=== PATIENT | female | born 1955 ===

== ENCOUNTER 2017-05-05 11:52 | Emergency (ER) | payer MEDICAID ==
[2017-05-05 12:47] VITALS: BP 148/47; PULSE 63; RESP 20; TEMP 97; O2SAT 95
[2017-05-05] MEDS ORDERED: Lidocaine 5% Patch TD STA (13:26)
--- NOTE | 2017-05-05 14:38 | ED PDOC ---
Upper Extremity Pain/Injury Time Seen by Provider: 05/05/17 13:00 Chief Complaint (Nursing): Upper Extremity Problem/Injury Chief Complaint (Provider): Upper Extremity Problem/Injury History Per: Patient Onset/Duration Of Symptoms: Other Current Symptoms Are (Timing): Still Present Additional Complaint(s): Diandra is a 62 year old female who presents to the Emergency Department complaining of atraumatic neck pain for the past month. Patient reports neck pain is localized to left side, and that it radiates to left shoulder. States she was seen by Dr. Sands (Orthopedist) at the onset of symptoms and was prescribed Tramadol. X-Ray was done and was told she had a pinched nerve. Denies trauma, fever, chest pain, shortness of breath, palpitations, weakness and increase pain with movement of her neck. PMD: Akhil Monroe Past Medical History Reviewed: Historical Data, Nursing Documentation, Vital Signs Vital Signs: Last Vital Signs Temp 97 F L 05/05/17 12:45 Pulse 63 05/05/17 12:45 Resp 20 05/05/17 12:45 BP 148/47 L 05/05/17 12:45 Pulse Ox 95 05/05/17 12:45 - Medical History PMH: Arthritis, Asthma, Bronchitis, Gastritis, HTN, Hypercholesterolemia, Rheumatoid Arthritis Denies: HIV, Chronic Kidney Disease - Surgical History Surgical History: Appendectomy, Cholecystectomy - Family History Family History: States: Unknown Family Hx - Immunization History Hx Tetanus Toxoid Vaccination: No Hx Influenza Vaccination: No - Home Medications Home Medications: Ambulatory Orders Medication Instructions Recorded Albuterol 0.083% [Albuterol 0.083% 0.083 inh INH PRN PRN 06/12/16 Inhal Reyna (2.5 mg/3 ml) UD] Montelukast [Singulair] 10 mg PO HS 06/12/16 Linezolid [Zyvox] 600 mg PO BID #16 tab 06/20/16 Pantoprazole [Protonix] 40 mg PO DAILY #15 ect 06/20/16 predniSONE [Prednisone] 5 mg PO DAILY #28 udc 06/20/16 Azithromycin [Zithromax] 250 mg PO DAILY #6 dose 06/29/16 Oseltamivir [Tamiflu] 75 mg PO BID #10 cap 06/29/16 Prednisone 50 mg PO DAILY #4 tablet 06/29/16 Metaxalone [Skelaxin] 800 mg PO BID PRN #10 tablet 05/05/17 - Allergies Allergies/Adverse Reactions: Allergies Allergy/AdvReac Type Severity Reaction Status Date / Time acetaminophen [From Percocet] Allergy RASH Verified 05/05/17 12:45 oxycodone Allergy SHORTNESS Verified 06/07/16 18:48 OF BREATH Penicillins Allergy RASH Verified 06/07/16 18:48 Review of Systems ROS Statement: Except As Marked, All Systems Reviewed And Found Negative Constitutional: Negative for: Fever Cardiovascular: Negative for: Chest Pain, Palpitations Respiratory: Negative for: Shortness of Breath Musculoskeletal: Positive for: Neck Pain (Left side), Shoulder Pain (Left side) . Negative for: Other (Increase pain with movement of her neck) Neurological: Negative for: Weakness Physical Exam - Reviewed Nursing Documentation Reviewed: Yes Vital Signs Reviewed: Yes - Physical Exam Appears: Positive for: Non-toxic, No Acute Distress Head Exam: Positive for: ATRAUMATIC, NORMAL INSPECTION, NORMOCEPHALIC Skin: Positive for: Normal Color Eye Exam: Positive for: Normal appearance ENT: Positive for: Normal ENT Inspection Neck: Positive for: Normal Cardiovascular/Chest: Positive for: Regular Rate, Rhythm Respiratory: Positive for: Normal Breath Sounds. Negative for: Respiratory Distress Pulses-Radial (L): 2+ Pulses-Radial (R): 2+ Back: Positive for: Muscle Spasm (Left-sided paracervical). 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 Patient will be discharged with Rx for Skelaxin. Counseling was provided and all questions were answered regarding diagnosis and need for follow up with PCP. There is agreement to discharge plan. Return if symptoms persist or worsen. Scribe Attestation: Documented by Guy Easley, acting as a scribe for Salvador Murphy PA-C Provider Scribe Attestation: All medical record entries made by the Scribe were at my direction and personally dictated by me. I have reviewed the chart and agree that the record accurately reflects my personal performance of the history, physical exam, medical decision making, and the department course for this patient. I have also personally directed, reviewed, and agree with the discharge instructions and disposition. Disposition - Clinical Impression Clinical Impression: Cervical radiculopathy - Patient ED Disposition Is Patient to be Admitted: No - Disposition Disposition: Routine/Home Disposition Time: 13:30 Condition: STABLE Additional Instructions: Follow up with Dr. Sands for further evaluation. Prescriptions: Metaxalone [Skelaxin] 800 mg PO BID PRN #10 tablet PRN Reason: Muscle Spasm Instructions: Cervical Radiculopathy (ED) Forms: [employer] (Nauruan) Print Language: GEORGIAN
== END 2017-05-05 13:57 | disposition home or self-care (01) ==
LOC: H.ER 11:52
DX: M54.12 Radiculopathy, cervical region (principal); E78.00 Pure hypercholesterolemia, unspecified; I10 Essential (primary) hypertension; J45.909 Unspecified asthma, uncomplicated; M06.9 Rheumatoid arthritis, unspecified; Z88.0 Allergy status to penicillin; Z88.5 Allergy status to narcotic agent

== ENCOUNTER 2017-08-03 12:43 | Emergency (ER) | payer MEDICAID ==
[2017-08-03 13:03] VITALS: BP 131/60; PULSE 63; RESP 20; TEMP 98.6; O2SAT 98
--- NOTE | 2017-08-03 13:48 | ED PDOC ---
HPI: Back Time Seen by Provider: 08/03/17 13:14 Chief Complaint (Nursing): Back Pain Chief Complaint (Provider): Back Pain History Per: Patient Onset/Duration Of Symptoms: Persistent (1 month), Worse Since (today) Current Symptoms Are (Timing): Still Present Additional Complaint(s): 62 year old female with medical history of asthma, diabetes and hypertension, presents to the emergency department with daughter for an evaluation of right- sided lower back pain exacerbated with sudden movements ongoing for 1 month. Patient reported pain is worse today and have taken Tylenol for pain relief, but not today. She denied any trauma or fall. PMD: Akhil Monroe MD Past Medical History Reviewed: Historical Data, Nursing Documentation, Vital Signs Vital Signs: Last Vital Signs Temp 98.6 F 08/03/17 13:00 Pulse 63 08/03/17 13:00 Resp 20 08/03/17 13:00 BP 131/60 08/03/17 13:00 Pulse Ox 98 08/03/17 13:00 - Medical History PMH: Arthritis, Asthma, Bronchitis, Gastritis, HTN, Hypercholesterolemia, Rheumatoid Arthritis Denies: HIV, Chronic Kidney Disease - Surgical History Surgical History: Appendectomy, Cholecystectomy - Family History Family History: States: Unknown Family Hx - Social History Current smoker - smoking cessation education provided: No Alcohol: None Drugs: Denies - Immunization History Hx Tetanus Toxoid Vaccination: No Hx Influenza Vaccination: No - Home Medications Home Medications: Ambulatory Orders Medication Instructions Recorded Albuterol 0.083% [Albuterol 0.083% 0.083 inh INH PRN PRN 06/12/16 Inhal Reyna (2.5 mg/3 ml) UD] Montelukast [Singulair] 10 mg PO HS 06/12/16 Linezolid [Zyvox] 600 mg PO BID #16 tab 06/20/16 Pantoprazole [Protonix] 40 mg PO DAILY #15 ect 06/20/16 predniSONE [Prednisone] 5 mg PO DAILY #28 udc 06/20/16 Azithromycin [Zithromax] 250 mg PO DAILY #6 dose 06/29/16 Oseltamivir [Tamiflu] 75 mg PO BID #10 cap 06/29/16 Prednisone 50 mg PO DAILY #4 tablet 06/29/16 Metaxalone [Skelaxin] 800 mg PO BID PRN #10 tablet 05/05/17 traMADol [Ultram] 50 mg PO Q6H PRN #10 tab 08/03/17 - Allergies Allergies/Adverse Reactions: Allergies Allergy/AdvReac Type Severity Reaction Status Date / Time acetaminophen [From Percocet] Allergy RASH Verified 05/05/17 12:45 oxycodone Allergy SHORTNESS Verified 06/07/16 18:48 OF BREATH Penicillins Allergy RASH Verified 06/07/16 18:48 Review of Systems ROS Statement: Except As Marked, All Systems Reviewed And Found Negative Musculoskeletal: Positive for: Back Pain (lower right). Negative for: Other ( trauma) Physical Exam - Reviewed Nursing Documentation Reviewed: Yes Vital Signs Reviewed: Yes - Physical Exam Appears: Positive for: Non-toxic, No Acute Distress Cardiovascular/Chest: Positive for: Regular Rate, Rhythm, Chest Non Tender Respiratory: Negative for: Normal Breath Sounds, Decreased Breath Sounds, Wheezing, Respiratory Distress Back: Positive for: Other (tenderness on palpation of right SI joint). Negative for: L CVA Tenderness, R CVA Tenderness, Decreased ROM Extremity: Positive for: Normal ROM (upper/lower) Neurologic/Psych: Positive for: Alert (x3), Oriented - ECG O2 Sat by Pulse Oximetry: 98 (RA) Pulse Ox Interpretation: Normal Medical Decision Making Medical Decision Making: Initial Impression: Back pain Initial Plan: * Ultram 50mg PO Scribe Attestation: Documented by Esperanza Way, acting as a scribe for Betsy Moya PA-C. Provider Scribe Attestation: All medical record entries made by the Scribe were at my direction and personally dictated by me. I have reviewed the chart and agree that the record accurately reflects my personal performance of the history, physical exam, medical decision making, and the department course for this patient. I have also personally directed, reviewed, and agree with the discharge instructions and disposition. Disposition - Clinical Impression Clinical Impression: Sciatica - Patient ED Disposition Is Patient to be Admitted: No Counseled Patient/Family Regarding: Diagnosis, Need For Followup, Rx Given - Disposition Referrals: Akhil Monroe MD [Primary Care Provider] - Disposition: Routine/Home Disposition Time: 14:39 Condition: STABLE Prescriptions: traMADol [Ultram] 50 mg PO Q6H PRN #10 tab PRN Reason: Pain Instructions: Sciatica (DC) Forms: [employer] (Anguillan) Print Language: WALLISIAN
== END 2017-08-03 14:42 | disposition home or self-care (01) ==
LOC: H.ER 12:43 → SUPCPDRO 12:43 → H.ER 14:42
DX: M54.31 Sciatica, right side (principal); E11.9 Type 2 diabetes mellitus without complications; Z88.5 Allergy status to narcotic agent; Z88.0 Allergy status to penicillin

== ENCOUNTER 2018-07-13 11:46 | Emergency (ER) | payer MEDICAID ==
[2018-07-13 12:00] VITALS: PULSE 68; TEMP 98.3
--- NOTE | 2018-07-13 14:39 | ED PDOC ---
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 Patient states pain to the right arm is chronic and began worsening yesterday, described as sharp. Patient reports similar symptoms in the past with bursitis and tendonitis flare ups to the same arm. Patient reports atraumatic, intermittent pain and swelling to the left ankle that has been worsening over the last few days. Denies falls. Took no medication patient to arrival. Otherwise: (-) fever. History obtained using [employer] [id number]. PMD: Akhil Monroe Past Medical History Reviewed: Historical Data, Nursing Documentation, Vital Signs Vital Signs: Last Vital Signs Temp 98.3 F 07/13/18 11:59 Pulse 68 07/13/18 11:59 Resp 18 07/13/18 11:59 BP 145/64 07/13/18 11:59 Pulse Ox 99 07/13/18 11:59 - Medical History PMH: Arthritis, Asthma, Bronchitis, Gastritis, HTN, Hypercholesterolemia, Rh eumatoid Arthritis Other PMH: Bursitis and Tendonitis - Surgical History Surgical History: Appendectomy, Cholecystectomy Other surgeries: Right Lung Operation and Hysterectomy - Family History Family History: States: Unknown Family Hx - Home Medications Home Medications: Ambulatory Orders Medication Instructions Recorded RX: Albuterol 0.083% [Albuterol 0.083 inh INH PRN PRN 06/12/16 0.083% Inhal Reyna (2.5 mg/3 ml) UD] RX: Montelukast [Singulair] 10 mg PO HS 06/12/16 Linezolid [Zyvox] 600 mg PO BID #16 tab 06/20/16 Pantoprazole [Protonix] 40 mg PO DAILY #15 ect 06/20/16 predniSONE [Prednisone] 5 mg PO DAILY #28 udc 06/20/16 Oseltamivir Cap [Tamiflu] 75 mg PO BID #10 cap 06/29/16 RX: Azithromycin [Zithromax] 250 mg PO DAILY #6 dose 06/29/16 RX: Prednisone 50 mg PO DAILY #4 tablet 06/29/16 Metaxalone [Skelaxin] 800 mg PO BID PRN #10 tablet 05/05/17 RX: traMADol [Ultram] 50 mg PO Q6H PRN #10 tab 08/03/17 Meloxicam [Mobic] 15 mg PO DAILY #10 tab 07/13/18 - Allergies Allergies/Adverse Reactions: Allergies Allergy/AdvReac Type Severity Reaction Status Date / Time acetaminophen [From Percocet] Allergy RASH Verified 05/05/17 12:45 oxycodone Allergy SHORTNESS Verified 06/07/16 18:48 OF BREATH Penicillins Allergy RASH Verified 06/07/16 18:48 Review of Systems ROS Statement: Except As Marked, All Systems Reviewed And Found Negative Musculoskeletal: Positive for: Arm Pain (right), Foot Pain (left ankle) Physical Exam - Reviewed Nursing Documentation Reviewed: Yes Vital Signs Reviewed: Yes - Physical Exam Comments: GENERAL APPEARANCE: Patient is awake, alert, oriented x 3, in no acute distress. SKIN: Warm, dry; (-) cyanosis. NECK: Supple, FROM CHEST AND RESPIRATORY: (-) rales, (-) rhonchi, (-) wheezes; breath sounds equal bilaterally. Respirations even and nonlabored. HEART AND CARDIOVASCULAR: (-) irregularity RIGHT UPPER EXTREMITY: (+) diffuse tenderness to the elbow (+) Decreased flexion secondary to pain otherwise ROM inact, (-) swelling, (-) erythema (-) crepitus (-) deformity (-) distal neurovascular deficit. (+) diffuse tenderness to the shoulder (-) erythema (-) crepitus (-) effusion (+) decreased ROM seco ndary to pain. Wrist, hand and digits: (-) tenderness with Full ROM. Sensation intact throughout. LEFT LOWER EXTREMITY: (+) Tenderness to the lateral malleolus with decreased ROM secondary to pain (+) small effusion to the lateral malleolous. Foot and Toes: (-) tenderness. Achilles tendon intact and non-tender. (-) calf tenderness. (+) distal sensation (+) distal pulses. Remainder of lower extremity (-) tenderness. NEURO AND PSYCH: Mental status as above. Gait: steady. Speech: clear. (-) facial asymmetry (-) aphasia - ECG O2 Sat by Pulse Oximetry: 99 (RA) Pulse Ox Interpretation: Normal Medical Decision Making Medical Decision Making: Time: 1415 Impression: Acute on Chronic Right Arm Pain and Left Ankle Pain Plan: -- Toradol 30 mg IM -- Tramadol 50 mg PO -- Ankle Left XR 3 views 1535 XR reviewed, radiology report follows Date of service: 07/13/2018 PROCEDURE: Left Ankle Radiographs. HISTORY: joint pain, swelling COMPARISON: None available. FINDINGS: BONES: There is an apparent lucency and cortical step-off in the lateral malleolus. Bone alignment and mineralization are normal. There is no bone destruction. There is a prominent plantar calcaneal spur. There is a large dorsal calcaneal enthesophyte. JOINTS: Normal. No osteoarthritis. Ankle mortise maintained. Talar dome intact SOFT TISSUES: Mild lateral soft tissue swelling. OTHER FINDINGS: None. IMPRESSION: Apparent lucency and cortical step-off in the lateral malleolus with mild overlying soft tissue swelling. In the setting of trauma, an acute nondisplaced fracture cannot be entirely excluded. Please correlate with point tenderness and if clinically indicated correlation with CT scan/MRI may be performed. In light of XR findings, consult placed to podiatry. Spoke to podiatry resident, Melina, who is agreeable to evaluation. 1620 Podiatry at bedside. See consult note. 1640 Patient placed in air cast by podiatry. Patient to follow up in podiatry clinic. On re-evaluation, patient reports improvement of symptoms. On exam, patient remains AAOx3, in no acute distress. Vitals stable. Lab/Diagnostic results d/w the patient in great detail. Diagnosis of chronic upper extremity pain/tendonitis, left ankle pain and effusion d/w the patient. Based on history, exam and diagnostic results, plan will be for outpatient follow up with PMD/podiatry clinic/ortho. Patient instructed to follow-up with pmd / referral provided / the clinic in 1- 2 days without fail. Advised to take medication as prescribed. Return to the emergency room at any time for any new or worsening symptoms. Patient states she fully agrees with and understands discharge instructions. States that she agrees with the plan and disposition. Verbalized and repeated discharge instructions and plan. I have given the patient opportunity to ask any additional questions. Scribe Attestation: Documented by Marcie Flynn, acting as a scribe Lyric Charles PA-C. Provider Scribe Attestation: All medical record entries made by the Scribe were at my direction and personally dictated by me. I have reviewed the chart and agree that the record accurately reflects my personal performance of the history, physical exam, medical decision making, and the department course for this patient. I have also personally directed, reviewed, and agree with the discharge instructions and disposition. Disposition - Clinical Impression Clinical Impression: Chronic pain of both upper extremities, Tendonitis, Acute left ankle pain, Effusion of ankle joint, left - Patient ED Disposition Is Patient to be Admitted: No Counseled Patient/Family Regarding: Studies Performed, Diagnosis, Need For Followup, Rx Given - Disposition Referrals: Podiatry Clinic [Outside] Akhil Monroe MD [Staff Provider] - Wei Fernandez MD [Medical Doctor] - Disposition: Routine/Home Disposition Time: 16:45 Condition: STABLE Additional Instructions: La atencin mdica de emergencia que recibi hoy se dirigi a burt sntomas agudos. Si le recetaron algn medicamento, llnelo y tmelo segn las indicaciones. Los sntomas pueden tardar varios botello en resolverse. Regrese al Departamento de Emergencias si burt sntomas empeoran, no mejoran o si tiene otros problemas. Comunquese con ndiaye mdico dentro de 2 botello para elijah nueva evaluacin y nancie un seguimiento o llame a licha de los mdicos / clnicas a los que serrano sido referido y que figuran en el formulario de Informacin de visita al paciente que se incluye en ndiaye paquete de lore. Lleve todos los documentos que le entregaron al momento del lore junto con todos los medicamentos que est tomando para ndiaye visita de seguimiento. Nuestro tratamiento no puede reemplazar la atencin mdica continua por parte de un proveedor de atencin primaria (PCP) fuera del departamento de emergencias. Prescriptions: Meloxicam [Mobic] 15 mg PO DAILY #10 tab Instructions: Ankle Sprain, Ankle Fracture, Tendonitis, Chronic Pain (DC), Muscle and Bone Pain (DC), Tendinopathy (DC) Forms: [employer] (Latvian) Print Language: WELSH - POA Present On Arrival: None
--- NOTE | 2018-07-13 15:36 | RAD ---
Date of service: 07/13/2018 PROCEDURE: Left Ankle Radiographs. HISTORY: joint pain, swelling COMPARISON: None available. FINDINGS: BONES: There is an apparent lucency and cortical step-off in the lateral malleolus. Bone alignment and mineralization are normal. There is no bone destruction. There is a prominent plantar calcaneal spur. There is a large dorsal calcaneal enthesophyte. JOINTS: Normal. No osteoarthritis. Ankle mortise maintained. Talar dome intact SOFT TISSUES: Mild lateral soft tissue swelling. OTHER FINDINGS: None. IMPRESSION: Apparent lucency and cortical step-off in the lateral malleolus with mild overlying soft tissue swelling. In the setting of trauma, an acute nondisplaced fracture cannot be entirely excluded. Please correlate with point tenderness and if clinically indicated correlation with CT scan/MRI may be performed.
--- NOTE | 2018-07-13 16:55 | CP.PCM.CON ---
History of Present Illness - History of Present Illness History of Present Illness: Podiatry consult note for Dr. Vega, 63 y/o female with a PMHx of Arthritis, Asthma, DM, Bursitis and Tendonitis seen in the ED for evaluation left ankle pain. Patient reports pain to swelling and pain to the left ankle has been worsening over the last few days and started 4 days ago. PPatient denies any trauma to the lower extremity. Denies excessive walking or excessive stress to the body in the last few days. Denies any other pedal complains. Denies f/n/v/sob/cp PMD: Akhil Monroe Past Patient History - Infectious Disease Hx of Infectious Diseases: None - Past Medical History & Family History Past Medical History?: Yes - Past Social History Smoking Status: Never Smoked - CARDIAC Hx Hypercholesterolemia: Yes Hx Hypertension: Yes - PULMONARY Hx Asthma: Yes Hx Bronchitis: Yes - NEUROLOGICAL Hx Neurological Disorder: No - HEENT Hx HEENT Problems: No - RENAL Hx Chronic Kidney Disease: No - ENDOCRINE/METABOLIC Hx Endocrine Disorders: No - HEMATOLOGICAL/ONCOLOGICAL Hx Human Immunodeficiency Virus (HIV): No - INTEGUMENTARY Hx Dermatological Problems: No - MUSCULOSKELETAL/RHEUMATOLOGICAL Hx Arthritis: Yes Hx Rheumatoid Arthritis: Yes - GASTROINTESTINAL Hx Gastritis: Yes - GENITOURINARY/GYNECOLOGICAL Hx Genitourinary Disorders: Yes Hx Uterine Cancer: Yes Other/Comment: endometrial ca and IRENE 3 yrs ago - PSYCHIATRIC Hx Psychophysiologic Disorder: No Hx Substance Use: No - SURGICAL HISTORY Hx Appendectomy: Yes Hx Cholecystectomy: Yes - ANESTHESIA Hx Anesthesia: Yes Hx Anesthesia Reactions: Yes (itichiness and nausea) Meds Home Medications: Home Medication List Medication Instructions Recorded Confirmed Type Meloxicam [Mobic] 15 mg PO DAILY #10 tab 07/13/18 Rx Allergies/Adverse Reactions: Allergies Allergy/AdvReac Type Severity Reaction Status Date / Time acetaminophen [From Percocet] Allergy RASH Verified 05/05/17 12:45 oxycodone Allergy SHORTNESS Verified 06/07/16 18:48 OF BREATH Penicillins Allergy RASH Verified 06/07/16 18:48 Physical Exam - Constitutional Appears: Well, Non-toxic, No Acute Distress - Head Exam Head Exam: ATRAUMATIC, NORMOCEPHALIC - Eye Exam Eye Exam: Normal appearance - Extremities Exam Additional comments: Left lower extremity exam: vascular: Dp/PT 2/4, CFT <3 secs x 5, TG warm to warm, no edema or erythema noted derm: no open lesions, no clinical signs of infection ortho: minimal pain on palpation to the left lateral malleolus, no pain with ROM of the ankle joint or subtalar joint neuro: protective sensation intact via ipswich 09/03 Results - Vital Signs Recent Vital Signs: Last Vital Signs Temp 98.3 F 07/13/18 11:59 Pulse 68 07/13/18 11:59 Resp 18 07/13/18 11:59 BP 145/64 07/13/18 11:59 Pulse Ox 99 07/13/18 16:52 Assessment & Plan - Assessment and Plan (Free Text) Assessment: 63 yo female with pmhx of diabetes seen and evaluated for left lateral ankle pain with no trauma. Plan: Patient seen and evaluated History and plan reviewed in detail with Dr. Vega Chart, labs and vitals reviewed Left ankle x-rays reviewed; radiolucnecy noted at the lateral malleolus. Possible nonhealing fracture of the left lateral malleolus. Air cast dispensed Patient advised to ambulate in air cast Patient showed verbal understnading Patient advised to follow up in podiatry clinic within 2-3 weeks if pain persists
[2018-07-13 17:16] VITALS: BP 150/75; RESP 16
[2018-07-14 22:09] VITALS: O2SAT 99
== END 2018-07-13 17:00 | disposition home or self-care (01) ==
LOC: H.ER 11:46
DX: M25.472 Effusion, left ankle (principal); M79.602 Pain in left arm; M79.601 Pain in right arm; G89.29 Other chronic pain; M65.849 Other synovitis and tenosynovitis, unspecified hand; E11.9 Type 2 diabetes mellitus without complications; E78.00 Pure hypercholesterolemia, unspecified; I10 Essential (primary) hypertension; M06.9 Rheumatoid arthritis, unspecified; Z88.0 Allergy status to penicillin; Z88.5 Allergy status to narcotic agent
CPT/HCPCS: 29540; 73610; 96372; 99283; J1885